=== PATIENT | female | born 1930 | race Hispanic/Latino ===

== ENCOUNTER 2017-03-16 16:17 | Inpatient (IN) | payer MEDICARE, OTHER ==
[~2017-03-16] VITALS: Ht 152.4 cm; Wt 68.0 kg
[2017-03-16 16:20] VITALS: BP 184/89
[2017-03-16] MEDS ORDERED: Morphine Sulfate 2mg/ml Inj IVP ONE ×3 (16:30→19:15)
[2017-03-16 17:16] LABS: EOSINOPHILS % (AUTO) 0.7 % (0.0-3.0); LYMPHOCYTES % (AUTO) 28.6 % (20.0-45.0); MEAN CORPUSCULAR HEMOGLOBIN 29.2 PG (27.0-31.0); MEAN CORPUSCULAR HGB CONC 31.7 G/DL (32.0-36.0); MEAN CORPUSCULAR VOLUME 92 FL (80-99); MEAN PLATELET VOLUME 7.2 FL (6.5-10.1); MONOCYTES % (AUTO) 4.6 % (1.0-10.0); NEUTROPHILS % (AUTO) 65.1 % (45.0-75.0); PLATELET COUNT 252 K/UL (150-450); RED BLOOD COUNT 3.82 M/UL (4.20-5.40); RED CELL DISTRIBUTION WIDTH 11.9 % (11.6-14.8); WHITE BLOOD COUNT 12.5 K/UL (4.8-10.8)
[2017-03-16 17:21] LABS: PROTHROMBIN TIME 10.9 SEC (9.30-11.50)
[2017-03-16 17:54] LABS: ALANINE AMINOTRANSFERASE 18 U/L (12-78); ANION GAP 11 (5-15); ASPARTATE AMINO TRANSFERASE 23 U/L (15-37); CALCIUM 9.5 MG/DL (8.5-10.1); CARBON DIOXIDE 24 MMOL/L (21-32); CHLORIDE 101 MMOL/L (98-107); CREATININE 0.9 MG/DL (0.55-1.30); POTASSIUM 3.7 MMOL/L (3.5-5.1); SODIUM 136 MMOL/L (136-145); TOTAL PROTEIN 7.7 G/DL (6.4-8.2)
[2017-03-16 18:30] VITALS: BP 175/84
--- NOTE | 2017-03-16 18:39 | Emergency Room Report ---
History of Present Illness General Chief Complaint: Multiple Trauma/Fall Source: Patient Present Illness HPI Patient is an 86-year-old female who presented after a fall while climbing a ladder. Patient reportedly had been trying to pick some guava and fell onto her right side. The patient denied loss of consciousness. Patient reported having pain to her right hip. The injury occurred just prior to arrival. she denies headache or neck pain. She denied loss of consciousness. She denied prior medical history other than hypertension. Allergies: Coded Allergies: No Known Allergies (Unverified , 03/16/17) Patient History Past Medical History: see triage record Reviewed Nursing Documentation: PMH: Agreed, PSxH: Agreed Nursing Documentation-PMH Past Medical History: No Stated History Review of Systems All Other Systems: negative except mentioned in HPI Physical Exam Vital Signs Date Time Temp Pulse Resp B/P (MAP) Pulse Ox O2 Delivery O2 Flow Rate FiO2 03/16/17 16:13 98.1 98 16 180/80 98 Room Air Sp02 EP Interpretation: reviewed, normal General Appearance: normal inspection, well appearing, no apparent distress, alert, Chronically Ill Head: atraumatic ENT: normal ENT inspection, hearing grossly normal, normal voice Neck: normal inspection, full range of motion, supple, no bony tend Respiratory: normal inspection, lungs clear, normal breath sounds, no respiratory distress, no retraction, no wheezing Cardiovascular #1: regular rate, rhythm, no edema Gastrointestinal: normal inspection, normal bowel sounds, non tender, soft, no guarding, no hernia Genitourinary: no CVA tenderness Musculoskeletal: decreased range of motion, other - extiern Neurologic: normal inspection, alert, oriented x3, responsive, speech normal Psychiatric: normal inspection, judgement/insight normal, mood/affect normal Skin: abrasions - right forearm abrasion Medical Decision Making Diagnostic Impression: Primary Impression: Hip fracture, right Additional Impression: Fall ER Course Patient presented for fall. Differential diagnosis included but was not limited to fracture, Dislocation, cellulitis, contusion among others.Patient was noted to be awake alert. CT of the right hip read by radiology showed femoral neck fracture. Patient was discussed with Dr. St for orthopedic consult. Dr. Rogers Kimball was contacted for inpatient management. Labs Test 03/16/17 16:30 White Blood Count 12.5 K/UL (4.8-10.8) Red Blood Count 3.82 M/UL (4.20-5.40) Hemoglobin 11.2 G/DL (12.0-16.0) Hematocrit 35.1 % (37.0-47.0) Mean Corpuscular Volume 92 FL (80-99) Mean Corpuscular Hemoglobin 29.2 PG (27.0-31.0) Mean Corpuscular Hemoglobin Concent 31.7 G/DL (32.0-36.0) Red Cell Distribution Width 11.9 % (11.6-14.8) Platelet Count 252 K/UL (150-450) Mean Platelet Volume 7.2 FL (6.5-10.1) Neutrophils (%) (Auto) 65.1 % (45.0-75.0) Lymphocytes (%) (Auto) 28.6 % (20.0-45.0) Monocytes (%) (Auto) 4.6 % (1.0-10.0) Eosinophils (%) (Auto) 0.7 % (0.0-3.0) Basophils (%) (Auto) 1.0 % (0.0-2.0) Prothrombin Time 10.9 SEC (9.30-11.50) Prothromb Time International Ratio 1.0 (0.9-1.1) Activated Partial Thromboplast Time 29 SEC (23-33) Sodium Level 136 MMOL/L (136-145) Potassium Level 3.7 MMOL/L (3.5-5.1) Chloride Level 101 MMOL/L (98-107) Carbon Dioxide Level 24 MMOL/L (21-32) Anion Gap 11 (5-15) Blood Urea Nitrogen 20 mg/dL (7-18) Creatinine 0.9 MG/DL (0.55-1.30) Estimat Glomerular Filtration Rate mL/min (>60) Glucose Level 116 MG/DL (74-106) Calcium Level 9.5 MG/DL (8.5-10.1) Total Bilirubin 0.2 MG/DL (0.2-1.0) Aspartate Amino Transf (AST/SGOT) 23 U/L (15-37) Alanine Aminotransferase (ALT/SGPT) 18 U/L (12-78) Alkaline Phosphatase 107 U/L (46-116) Troponin I 0.017 ng/mL (0.000-0.056) Total Protein 7.7 G/DL (6.4-8.2) Albumin 3.9 G/DL (3.4-5.0) Globulin 3.8 g/dL Albumin/Globulin Ratio 1.0 (1.0-2.7) Last Vital Signs Date Time Temp Pulse Resp B/P (MAP) Pulse Ox O2 Delivery O2 Flow Rate FiO2 03/16/17 17:53 98.5 03/16/17 16:20 97 23 184/89 100 Room Air Status: improved Disposition: ADMITTED INPATIENT Condition: Serious Referrals: NOT CHOSEN IPA/,REFERRING (PCP) Trevor Peace Mar 16, 2017 18:39
[2017-03-16 19:20] VITALS: BP 168/85
--- NOTE | 2017-03-16 19:21 | Cardiac Electrophysiology PN ---
Subjective Subjective [id number] Objective Last 24 Hour Vital Signs Date Time Temp Pulse Resp B/P (MAP) Pulse Ox O2 Delivery O2 Flow Rate FiO2 03/16/17 17:53 98.5 03/16/17 17:03 98.5 03/16/17 16:20 98.5 97 23 184/89 100 Room Air 03/16/17 16:13 98.1 98 16 180/80 98 Room Air Laboratory Tests Test 03/16/17 16:30 White Blood Count 12.5 K/UL (4.8-10.8) H Red Blood Count 3.82 M/UL (4.20-5.40) L Hemoglobin 11.2 G/DL (12.0-16.0) L Hematocrit 35.1 % (37.0-47.0) L Mean Corpuscular Volume 92 FL (80-99) Mean Corpuscular Hemoglobin 29.2 PG (27.0-31.0) Mean Corpuscular Hemoglobin Concent 31.7 G/DL (32.0-36.0) L Red Cell Distribution Width 11.9 % (11.6-14.8) Platelet Count 252 K/UL (150-450) Mean Platelet Volume 7.2 FL (6.5-10.1) Neutrophils (%) (Auto) 65.1 % (45.0-75.0) Lymphocytes (%) (Auto) 28.6 % (20.0-45.0) Monocytes (%) (Auto) 4.6 % (1.0-10.0) Eosinophils (%) (Auto) 0.7 % (0.0-3.0) Basophils (%) (Auto) 1.0 % (0.0-2.0) Prothrombin Time 10.9 SEC (9.30-11.50) Prothromb Time International Ratio 1.0 (0.9-1.1) Activated Partial Thromboplast Time 29 SEC (23-33) Sodium Level 136 MMOL/L (136-145) Potassium Level 3.7 MMOL/L (3.5-5.1) Chloride Level 101 MMOL/L (98-107) Carbon Dioxide Level 24 MMOL/L (21-32) Anion Gap 11 (5-15) Blood Urea Nitrogen 20 mg/dL (7-18) H Creatinine 0.9 MG/DL (0.55-1.30) Estimat Glomerular Filtration Rate mL/min (>60) Glucose Level 116 MG/DL (74-106) H Calcium Level 9.5 MG/DL (8.5-10.1) Total Bilirubin 0.2 MG/DL (0.2-1.0) Aspartate Amino Transf (AST/SGOT) 23 U/L (15-37) Alanine Aminotransferase (ALT/SGPT) 18 U/L (12-78) Alkaline Phosphatase 107 U/L (46-116) Troponin I 0.017 ng/mL (0.000-0.056) Total Protein 7.7 G/DL (6.4-8.2) Albumin 3.9 G/DL (3.4-5.0) Globulin 3.8 g/dL Albumin/Globulin Ratio 1.0 (1.0-2.7) PRICILLA RUIZ Mar 16, 2017 19:21
[2017-03-16 20:09] VITALS: BP 165/82
[2017-03-16] MEDS ORDERED: Zolpidem 5mg tab ORAL PRN (22:15)
[2017-03-16] MEDS ORDERED: Milk of Magnesia 30ml Ud ORAL PRN (22:15)
[2017-03-16] MEDS: HYDROmorphone 1mg/ml Carpuject IVP PRN (22:34)
[2017-03-16] MEDS: Metoprolol 25mg tab ORAL SCH (22:55)
[2017-03-16] MEDS: Heparin 5000 units/ml inj SUBQ SCH (22:58)
[2017-03-17 04:00] VITALS: BP 150/75
[2017-03-17 08:00] VITALS: BP 147/64
[2017-03-17] MEDS: Metoprolol 25mg tab ORAL SCH (08:16)
[2017-03-17] MEDS: Heparin 5000 units/ml inj SUBQ SCH (08:19)
[2017-03-17 08:57] LABS: BASOPHILS % (AUTO) 0.4 % (0.0-2.0); EOSINOPHILS % (AUTO) 0.1 % (0.0-3.0); LYMPHOCYTES % (AUTO) 13.4 % (20.0-45.0); MEAN CORPUSCULAR HEMOGLOBIN 29.6 PG (27.0-31.0); MEAN CORPUSCULAR HGB CONC 32.6 G/DL (32.0-36.0); MEAN CORPUSCULAR VOLUME 91 FL (80-99); MEAN PLATELET VOLUME 8.2 FL (6.5-10.1); MONOCYTES % (AUTO) 7.4 % (1.0-10.0); NEUTROPHILS % (AUTO) 78.8 % (45.0-75.0); PLATELET COUNT 240 K/UL (150-450); RED BLOOD COUNT 3.58 M/UL (4.20-5.40); RED CELL DISTRIBUTION WIDTH 12.1 % (11.6-14.8); WHITE BLOOD COUNT 10.7 K/UL (4.8-10.8)
[2017-03-17 09:00] VITALS: BP 147/64
[2017-03-17 09:17] LABS: ALANINE AMINOTRANSFERASE 43 U/L (12-78); ANION GAP 5 (5-15); ASPARTATE AMINO TRANSFERASE 52 U/L (15-37); CALCIUM 9.1 MG/DL (8.5-10.1); CARBON DIOXIDE 27 MMOL/L (21-32); CHLORIDE 98 MMOL/L (98-107); CREATININE 0.7 MG/DL (0.55-1.30); POTASSIUM 3.7 MMOL/L (3.5-5.1); SODIUM 130 MMOL/L (136-145); TOTAL PROTEIN 7.3 G/DL (6.4-8.2)
--- NOTE | 2017-03-17 09:23 | Consultation ---
Consult Note Consult Note Patient seen/evaluated. Patient with displaced subcapital femoral neck fracture after a mechanical fall. Will require right hip hemiarthroplasty. Patient and family insistent on transferring to [facility] where she gets all of her care and his a MD who is familiar with her. She is stable for transfer from ortho standpoint so long as there is a bed available and an accepting physician. If bed/accepting MD not available in the next couple of days, patient will consider proceeding with right hemiarthroplasty at [facility]. Discussed with nurse and piano case maker to arrange transfer. Will follow as needed. Thank you JESSA LINDER Mar 17, 2017 09:23
--- NOTE | 2017-03-17 09:37 | Diagnostic Imaging Report ---
Indication: PREOP Comparison: None Findings: Single view of the chest shows a normal cardiomediastinal silhouette. Pulmonary vasculature is normal. Lung are clear. Soft tissues and osseous structures are within normal limits. There is a rounded density noted overlying the cardiac silhouette just left of midline, just above the diaphragm. This may represent a hiatal hernia. Consider lateral view for confirmation. Impression: No acute chest disease Possible hiatal hernia. Consider lateral view for further evaluation.
--- NOTE | 2017-03-17 09:57 | Diagnostic Imaging Report ---
Indication: Pain, status post fall Comparison: None Technique: Contiguous of the CT images through the pelvis and hips was performed without intravenous contrast. Axial, coronal and sagittal reconstructions were reformatted. CT Dose: Total DLP: 408 mGycm; Total CTDI volume 11.8 Findings: There is an acute right femoral neck fracture with superior displacement of the proximal femur relative to the femoral head. There is slight angulation. Mild effusion and soft tissue swelling is noted. No definite bony destructive lesion is seen. No femoral head dislocation. Left hip is intact. Bony pelvis is intact. Dilated bowel is unremarkable. 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 Impression: Acute fracture right femoral neck as described above.
--- NOTE | 2017-03-17 10:12 | Diagnostic Imaging Report ---
Indication: PAIN Comparison: None Findings: 2 views of the right radius and ulna show no acute fractures or dislocations. Bony mineralization is slightly decreased. No bony destructive lesions are identified. Soft tissues are unremarkable. Impression: No fracture or dislocation of the right forearm. Mild osteopenia
--- NOTE | 2017-03-17 10:26 | History & Physical ---
History and Physical History & Physicial HP dictated # [id number] SHAHLA TODD Mar 17, 2017 10:26
[2017-03-17] MEDS: HYDROmorphone 1mg/ml Carpuject IVP PRN ×2 (10:27→13:41)
[2017-03-17] MEDS ORDERED: SODIUM CHLORID250 M1 IV ×2 (11:22→11:25)
[2017-03-17] MEDS ORDERED: HEPARIN SO5000 UNIT2 SUBQ (11:25)
[2017-03-17] MEDS ORDERED: AMBIEN5 MG ORAL (11:26)
[2017-03-17] MEDS ORDERED: ZANTAC150 MG ORAL (11:27)
[2017-03-17] MEDS ORDERED: ZOFRAN4 M1 IV (11:27)
[2017-03-17] MEDS ORDERED: LOPRESSOR25 M1 ORAL (11:28)
[2017-03-17] MEDS ORDERED: MILK OF MA400 MG/51 ORAL (11:29)
[2017-03-17] MEDS ORDERED: DILAUDID 11 MG/1 M1 IVP ×2 (11:31→11:32)
[2017-03-17] MEDS ORDERED: TYLENOL650 MG/20. ORAL (11:32)
[2017-03-17 12:00] VITALS: BP 127/55
--- NOTE | 2017-03-17 13:58 | Cardiac Electrophysiology PN ---
Assessment/Plan Assessment/Plan 1. HTN Continue Lopressor 25 bid. 2. Right hip fx. No CHF. EF Normal. No . No known CAD. OK to proceed with surgery at moderate risk in view of her age 86. 3. Biatrial enlargement. Risk of post op atrial fib. COLLEEN RN and Dr Kimball. Being transferred to [facility] Subjective Subjective No chest pain or SOB. Is being transferred to [facility] for surgery. Had echo that showed EF 55% Objective Last 24 Hour Vital Signs Date Time Temp Pulse Resp B/P (MAP) Pulse Ox O2 Delivery O2 Flow Rate FiO2 03/17/17 12:00 98.2 69 19 127/55 94 Room Air 03/17/17 09:00 98.2 88 20 147/64 98 Room Air 03/17/17 08:16 88 147/64 03/17/17 08:00 98.2 88 20 147/64 98 Room Air 03/17/17 04:00 97.5 80 20 150/75 94 Room Air 03/16/17 22:55 97 165/82 03/16/17 20:16 98.4 97 16 165/82 100 Room Air 03/16/17 20:12 98.4 03/16/17 20:09 98.4 97 16 165/82 100 Room Air 03/16/17 19:20 98.2 98 16 168/85 100 Room Air 03/16/17 18:30 98.5 95 23 175/84 100 Room Air 03/16/17 17:53 98.5 03/16/17 17:03 98.5 03/16/17 16:20 98.5 97 23 184/89 100 Room Air 03/16/17 16:13 98.1 98 16 180/80 98 Room Air Intake and Output 03/17/17 03/18/17 19:00 07:00 Intake Total 350 ml Balance 350 ml Intake IV Total 350 ml Laboratory Tests Test 03/16/17 16:30 03/17/17 07:15 White Blood Count 12.5 K/UL (4.8-10.8) H 10.7 K/UL (4.8-10.8) Red Blood Count 3.82 M/UL (4.20-5.40) L 3.58 M/UL (4.20-5.40) L Hemoglobin 11.2 G/DL (12.0-16.0) L 10.6 G/DL (12.0-16.0) L Hematocrit 35.1 % (37.0-47.0) L 32.5 % (37.0-47.0) L Mean Corpuscular Volume 92 FL (80-99) 91 FL (80-99) Mean Corpuscular Hemoglobin 29.2 PG (27.0-31.0) 29.6 PG (27.0-31.0) Mean Corpuscular Hemoglobin Concent 31.7 G/DL (32.0-36.0) L 32.6 G/DL (32.0-36.0) Red Cell Distribution Width 11.9 % (11.6-14.8) 12.1 % (11.6-14.8) Platelet Count 252 K/UL (150-450) 240 K/UL (150-450) Mean Platelet Volume 7.2 FL (6.5-10.1) 8.2 FL (6.5-10.1) Neutrophils (%) (Auto) 65.1 % (45.0-75.0) 78.8 % (45.0-75.0) H Lymphocytes (%) (Auto) 28.6 % (20.0-45.0) 13.4 % (20.0-45.0) L Monocytes (%) (Auto) 4.6 % (1.0-10.0) 7.4 % (1.0-10.0) Eosinophils (%) (Auto) 0.7 % (0.0-3.0) 0.1 % (0.0-3.0) Basophils (%) (Auto) 1.0 % (0.0-2.0) 0.4 % (0.0-2.0) Prothrombin Time 10.9 SEC (9.30-11.50) Prothromb Time International Ratio 1.0 (0.9-1.1) Activated Partial Thromboplast Time 29 SEC (23-33) Sodium Level 136 MMOL/L (136-145) 130 MMOL/L (136-145) L Potassium Level 3.7 MMOL/L (3.5-5.1) 3.7 MMOL/L (3.5-5.1) Chloride Level 101 MMOL/L (98-107) 98 MMOL/L (98-107) Carbon Dioxide Level 24 MMOL/L (21-32) 27 MMOL/L (21-32) Anion Gap 11 (5-15) 5 (5-15) Blood Urea Nitrogen 20 mg/dL (7-18) H 15 mg/dL (7-18) Creatinine 0.9 MG/DL (0.55-1.30) 0.7 MG/DL (0.55-1.30) Estimat Glomerular Filtration Rate mL/min (>60) mL/min (>60) Glucose Level 116 MG/DL (74-106) H 107 MG/DL (74-106) H Calcium Level 9.5 MG/DL (8.5-10.1) 9.1 MG/DL (8.5-10.1) Total Bilirubin 0.2 MG/DL (0.2-1.0) 0.6 MG/DL (0.2-1.0) Aspartate Amino Transf (AST/SGOT) 23 U/L (15-37) 52 U/L (15-37) H Alanine Aminotransferase (ALT/SGPT) 18 U/L (12-78) 43 U/L (12-78) Alkaline Phosphatase 107 U/L (46-116) 100 U/L (46-116) Troponin I 0.017 ng/mL (0.000-0.056) Total Protein 7.7 G/DL (6.4-8.2) 7.3 G/DL (6.4-8.2) Albumin 3.9 G/DL (3.4-5.0) 3.6 G/DL (3.4-5.0) Globulin 3.8 g/dL 3.7 g/dL Albumin/Globulin Ratio 1.0 (1.0-2.7) 1.0 (1.0-2.7) Objective HEENT: No JVD LUNGS: Clear CVS: RRR ABDOMEN: soft EXT: No edema.Right LE rotated PRICILLA RUIZ Mar 17, 2017 13:58
--- NOTE | 2017-03-17 17:30 | History and Physical Report ---
DATE OF ADMISSION: 03/16/2017 CHIEF COMPLAINT: The patient fell from a ladder and developed displaced subcapital femoral neck fracture. HISTORY OF PRESENT ILLNESS: This is an 86-year-old female, who was going up the ladder, apparently fell down. The patient was brought into the hospital and was diagnosed with a displaced subcapital femoral neck fracture. Again, there is no dizziness or lightheadedness prior to this. PAST MEDICAL HISTORY: History of hypertension. ALLERGIES: No known drug allergies. SOCIAL HISTORY: No history of smoking or alcohol abuse. REVIEW OF SYSTEMS: Noncontributory. PHYSICAL EXAMINATION: GENERAL: The patient is an elderly female. She moans in pain. VITAL SIGNS: Blood pressure is 147/64, pulse 88, temperature 98.2, and respirations 20. HEENT: [place] conjunctivae. Anicteric sclerae. NECK: Supple. LUNGS: Clear to auscultation. HEART: S1 and S2 without murmurs or rubs. ABDOMEN: Soft and nontender. EXTREMITIES: No cyanosis or edema. LABORATORY FINDINGS: As of today, the CBC shows WBC of 10,700, hematocrit 32.5, hemoglobin is 10.6, and platelets 220,000. Chemistry panel shows serum sodium of 130, potassium 3.7, chloride 27, and glucose is 107. ASSESSMENT: This is an 86-year-old female, status post a mechanical fall from a ladder resulting in a displaced subcapital femoral neck fracture. She has a history of hypertension. PLAN: The patient was started on pain medications, IV fluids. The patient was seen by Dr. Olivo, in Cardiology consultation for clearance. Also, the patient was seen this morning by Dr. St for Orthopedic Surgery. His opinion is the patient will require right hip hemiarthroplasty. However, at this point, the patient's family wants to transfer the patient to [facility], where she gets usually her care. Following MIPS (merit-based incentive payment system) was done. Measure #318: Screen for future fall risk at least once in 2017. The patient is at high risk, especially now that she has hip fracture. Measure #374: Send report to referring provider. This will be done through EMR. Measure #130: I obtained updated review of the patient's current medications including prescription, [id number], herbal, and nutritional supplements. The following improvement activities were done in this patient. 1. Provide 25/12 access to eligible clinicians or groups. We will have real-time access to the patient's medical record. This will be done through EMR. 2. Implementation of use of specialists reports back to referring clinician or group to close referral loop. This will be done through EMR as well. Rogers Kimball M.D. DR: JOSE JOB#: [id number] CC:
--- NOTE | 2017-03-19 08:31 | Consultation ---
DATE OF CONSULTATION: 03/16/2017 CARDIOLOGY CONSULTATION CONSULTING PHYSICIAN: Basil Olivo M.D. REFERRING PHYSICIAN: Rogers Kimball M.D. REASON FOR CONSULTATION: Management of hypertension and preoperative clearance prior to right hip surgery. HISTORY OF PRESENT ILLNESS: The patient is a very pleasant 86-year-old lady with a history of hypertension, who had a fall while climbing a ladder while she was trying to pick some , fell onto her right side. The patient did not lose consciousness and had right hip pain. In the emergency room, the patient was evaluated and was found to have a right hip fracture. Cardiology consultation was obtained for further evaluation. It is also of note that in the emergency room, the patient's blood pressure was 180/80 with a pulse of 98. PAST MEDICAL HISTORY: Hypertension. SOCIAL HISTORY: She lives at home. She does not smoke or drink alcohol. FAMILY HISTORY: Noncontributory. REVIEW OF SYSTEMS: Review of systems was performed and was negative other than what was mentioned in the history of present illness. PHYSICAL EXAMINATION: VITAL SIGNS: Blood pressure 180/80, pulse is 98, respirations 16 and she is afebrile. HEAD AND NECK: No JVD. LUNGS: Clear. CARDIOVASCULAR: Regular S1 and S2 with no gallop or murmur. ABDOMEN: Soft and nontender. EXTREMITIES: Right hip rotation. LABORATORY DATA: Lab show white count of 12.5, hemoglobin 11.2, hematocrit 35, and platelet count is 252. Sodium 133, potassium 3.7, BUN of 20, and creatinine 0.9. Troponin is negative. ASSESSMENT AND PLAN: 1. Status post fall resulting in right hip fracture. The patient does not have any chest pain. EKG showed normal sinus rhythm, just biatrial enlargement with no ST-T-wave abnormalities. The patient denies any prior congestive heart failure or known coronary artery disease or diabetes. We will get an echocardiogram to evaluate for ejection fraction and wall motion abnormality. If the echocardiogram is okay, the patient is cleared to undergo right hip surgery, obviously at moderate risk in view of her age. 2. Hypertension. We will start the patient on Lopressor 25 mg b.i.d., that would help to prevent perioperative atrial fibrillation as well as for tachycardia and hypertension. Thank very much, Dr. Kimball, for allowing me to participate in the care of this patient. Please do not hesitate to contact me for any questions regarding my evaluation. The patient was discussed with emergency room physician as well. Basil Olivo M.D. DR: RUEL JOB#: [id number] CC:
--- NOTE | 2017-03-19 08:31 | Consultation ---
DATE OF CONSULTATION: 03/17/2017 ORTHOPEDIC CONSULTATION CONSULTING PHYSICIAN: Rober St M.D. REFERRING PHYSICIAN: Rogers Kimball M.D. ATTENDING PHYSICIAN: Rogers Kimball M.D. REASON FOR CONSULTATION: Right-sided hip fracture. CHIEF COMPLAINT: Right-sided hip pain. BRIEF HISTORY: The patient is a pleasant 86-year-old female, who apparently was climbing a ladder and fell down on her right side and broke her hip. Apparently, she was ambulatory prior to this. She has significant pain about the right side. She did not have any other significant injury. She has not had a syncopal episode. She did not hit her head. She had some arm pain and x-rays were obtained, which did not show a fracture. Orthopedic consultation was obtained. PAST MEDICAL HISTORY: Significant for history of hypertension. PAST SURGICAL HISTORY: None documented. MEDICATIONS: Please see chart. ALLERGIES: She has no known drug allergies. SOCIAL HISTORY: She does not smoke or drink. She is here with her granddaughter. She is Lebanese speaking, although she is able to understand Indonesian some and her granddaughter translates for her. REVIEW OF SYSTEMS: Noncontributory. PHYSICAL EXAMINATION: GENERAL: Examination of the patient today reveals she is a very pleasant lady, cooperative with the examination. PELVIC: Examination of the right hip revealed that she has got shortened and externally rotated right hip. She has got pain over the area. She has got some tender to palpation over that area. Examination of the arm reveals she has good range of motion of the elbow. NEUROLOGICAL: Intact. DIAGNOSTIC DATA: X-ray, CT scan of the hip and pelvis were obtained by the emergency room. CT scan showed a right hip displaced subcapital femoral neck fracture. IMPRESSION: Right hip subcapital femoral neck fracture with displacement in an ambulatory patient after a mechanical fall. PLAN: At this time, I had a discussion with the patient and her family members including her granddaughter, who is over the age of 18. We talked to her about nature of the problem. They fully understand that the best treatment for her would be to proceed with a right hip hemiarthroplasty. However, they stated to me that her physicians are in [facility] and they would rather go to [place]. Apparently, they expressed that in the emergency room as well as when she was admitted to the floor and they strongly feel that they would like to get transferred to [facility]. Therefore, from Orthopedic standpoint, her hip fracture is stable with respect to transfer and she will be transferred with the ambulance to [facility] for definitive care. However, I explained to her that they need to have an accepting physician as well as a bed available at the hospital. They understand that and they will be working on that today and tomorrow. Meanwhile, I talked to her that we should try to fix her hip sooner or later should not wait on it too long and they fully understand that if they are unable to transfer in the next couple of days, they will agree to proceed with a right hip hemiarthroplasty at this hospital. They felt that they would like to get all the care in one place, which would be at [facility]. At this time, we will comply with family's wishes and try to arrange for transfer. I discussed with the nurse and the director case management. We will discuss this with the nurse and get her transferred out to [facility]. If for some reason she is not able to transfer by Sunday, we will set her up for a right hip hemiarthroplasty on Sunday. Risks, benefits, and complications of surgery were fully discussed with them. The risk of infection, bleeding, neurovascular complication, possibility of failure, possibility of fracture of femur, possibility of dislocation, possibility of leg length discrepancy, possibility of inability to walk for long periods of time, possibility of limping, and use of assistive devices were discussed with them. The patient understands and agreed with the treatment plan. All questions were answered. We will follow her peripherally and if she stays at the hospital until Sunday, we will proceed on Sunday. If she chooses to stay at the hospital, she needs to be medically optimized and needs to have a cardiac workup including a 2D echo as well as optimize with respect to all her baseline functions including laboratories. Rober tS M.D. DR: VALENTIN JOB#: [id number] CC: BOB
--- NOTE | 2017-03-19 09:41 | Cardiology Report ---
APPROVED REPORT EXAM: Two-dimensional and M-mode echocardiogram with Doppler and color Doppler. INDICATION Arrhythmia M-Mode DIMENSIONS IVSd0.9 (0.7-1.1cm)Left Atrium (MM)3.7 (1.6-4.0cm) LVDd3.8 (3.5-5.6cm)Aortic Root2.7 (2.0-3.7cm) PWd0.7 (0.7-1.1cm)Aortic Cusp Exc.1.9 (1.5-2.0cm) LVDs1.9 (2.5-4.0cm) PWs1.8 cm Normal left ventricular chamber size, systolic function and wall motion. Left ventricular ejection fraction estimated to be 55 %. No evidence of left ventricular hypertrophy. Anterior Echo-free space, may be due to pericardial fat or effusion. All other cardiac chamber sizes are within normal limits. Mild focal aortic valve sclerosis with adequate cusp excursion. Mildly thickened mitral valve leaflets with normal excursion. Mild mitral annulus and aortic root calcification. Normal pulmonic valve structure. Normal tricuspid valve structure. IVC dilated at 1.9 cm with physiologic collapse, estimated RAP is 10 mmHg. A color flow and spectral Doppler study was performed and revealed: No aortic regurgitation. Mild to moderate mitral regurgitation. Mitral diastolic velocities suggest reduced left ventricular relaxation c/w mild LV diastolic dysfunction (Grade I ). Mild tricuspid regurgitation. Tricuspid systolic velocities suggests peak right ventricular systolic pressure of 40 mmHg, consistent with mild pulmonary hypertension. Trace pulmonic regurgitation present.
--- NOTE | 2017-03-20 07:26 | Discharge Summary ---
Discharge Summary Hospital Course Date of Admission Mar 16, 2017 at 17:07 Date of Discharge Mar 17, 2017 at 14:05 Admitting Diagnosis hip fracture HPI Sindhu Alexander is a 86 year old female who was admitted on Mar 16, 2017 at 17:07 for Hip Fracture Hospital Course dc summary #[id number] Discharge Medications Continued Medications: 0.9 % Sodium Chloride (Sodium Chloride) 250 Ml Pggybk.prt 250 ML IV 50 CC/HR for CONTINUOUS Acetaminophen (Acetaminophen) 650 Mg/20.3 Ml Solution 650 MG ORAL Q4HR for Mild Pain (Pain Scale 1-3), ML 0 Refills Heparin Sod (Porcine) (Heparin Sodium*) 5 000/1 Ml Vial 5000 UNITS SUBQ EVERY 12 HOURS, VIAL Hydromorphone HCl/Pf (Dilaudid 1 Mg/Ml Syringe) 1 Mg/1 Ml Syringe 1 MG IVP Q3HR PRN for Moderate Pain (Pain Scale 4-6) Hydromorphone HCl/Pf (Dilaudid 1 Mg/Ml Syringe) 1 Mg/1 Ml Syringe 1.5 MG IVP Q3HR PRN for Severe Pain (Pain Scale 7-10) Magnesium Hydroxide* (Milk Of Magnesia*) 400 Mg/5 Ml Oral.susp 30 ML ORAL HSPRN for CONSTIPATION, ML Metoprolol Tartrate (Metoprolol Tartrate) 25 Mg Tablet 25 MG ORAL EVERY 12 HOURS, TAB Ondansetron (Zofran) 4 Mg Tablet 4 MG IV Q6H PRN for Nausea & Vomiting, TAB Ranitidine Hcl* (Zantac*) 150 Mg Tablet 150 MG ORAL TWICE A DAY, TAB Zolpidem Tartrate* (Ambien*) 5 Mg Tablet 5 MG ORAL BEDTIME PRN for Insomnia, TAB Discharge Condition Upon Discharge: stable Discharge Disposition Patient was discharged to Acute Care Facility(02)-[facility] Discharge Diagnoses: Discharge Instructions Discharge Instructions Special Instructions I have been assigned to complete a D/C Summary on this account. I was not involved in the patient management Nohemi Pineda NP (Vanchtein) Mar 20, 2017 07:26
--- NOTE | 2017-03-20 17:30 | Discharge Summary 2 SIG ---
DATE OF ADMISSION: 03/16/2017 DATE OF DISCHARGE: 03/17/2017 REASON FOR ADMISSION: 86-year-old female with a history of hypertension, was climbing up the ladder when she apparently fell down. She was brought into the hospital for evaluation and was diagnosed with displaced subcapital femoral neck fracture , evident on the hip CT. Right forearm x-ray revealed no evidence of acute fracture. The patient denied loss of consciousness, dizziness, lightheadedness, blackout while falling down. The patient was admitted for further management. HOSPITAL STAY: The patient was admitted. Orthopedic and Cardiology consults were requested. The patient was started on IV fluids. Pain management was provided. Orthopedic surgeon seen the patient and after close evaluation determined that the patient will need right hip hemiarthroplasty. Interior Design Instructor seen the patient for cardiology clearance and order echocardiogram as well as started the patient on Lopressor for blood pressure control as well as to help to prevent perioperative atrial fibrillation and for tachycardia and hypertension. Echocardiogram was ordered, which revealed preserved ejection fraction of 65% and right ventricular systolic pressure of 40 consistent with mild pulmonary hypertension. Normal left ventricular chamber size, systolic function and wall motion. No evidence of left ventricular hypertrophy. Mild to moderate mitral regurgitation. However, the family stated that the patient usually receives care in [facility] and requested for transfer. Per orthopedic surgeon in regard to fracture, the patient was stable for transfer. The patient was transferred to [facility] for further management. FINAL DIAGNOSES: 1. Status post fall 2. Acute right hip displaced subcapital femoral neck fracture. 3. Hypertension. DISCHARGE MEDICATIONS: See medication reconciliation list. DISCHARGE INSTRUCTIONS: The patient was discharged to [facility]. FOLLOWUP: Followup with medical doctor and surgeon at the admitting hospital. Rogers Kimball M.D. I have been assigned to dictate discharge summary on this account and I was not involved in the patient's management. Nohemi Pineda (Vanchtein) N.P. DR: ELLIE JOB#: [id number] CC: BOB
--- NOTE | 2017-03-27 08:31 | Cardiology Report ---
APPROVED REPORT EKG Measurement Heart [id number] Normal sinus rhythm Possible Left atrial enlargement Left axis deviation Abnormal ECG
== END 2017-03-17 14:05 | disposition short-term general hospital (02) | DRG 536 ==
LOC: EDBD 16:17 → EMR 16:50 → 4W 17:07 → EDBEDREQ 18:15
DX: S72.011A Unspecified intracapsular fracture of right femur, initial encounter for closed fracture (principal); I27.20 Pulmonary hypertension, unspecified; I10 Essential (primary) hypertension; W11.XXXA Fall on and from ladder, initial encounter; Y92.009 Unspecified place in unspecified non-institutional (private) residence as the place of occurrence of the external cause
CPT/HCPCS: 36415; 71010; 80053; 84484; 85025; 85610; 85730; 93005; 93306; 99285; J2405